=== PATIENT | male | born 1960 | race Caucasian/White ===

== ENCOUNTER 2023-08-16 16:04 | Emergency (ER) | payer BC, OTHER ==
[2023-08-16] MEDS ORDERED: Lidocaine 1% 20 ML MDV INFILT ONE (16:05)
[2023-08-16 16:30] VITALS: BP 168/88; PULSE 71
== END 2023-08-16 17:25 | disposition home or self-care (01) ==
LOC: FB.ED 16:04
DX: S61.012A Laceration without foreign body of left thumb without damage to nail, initial encounter (principal); W26.0XXA Contact with knife, initial encounter; Z79.899 Other long term (current) drug therapy
CPT/HCPCS: 12002; 99282

== ENCOUNTER 2025-08-08 07:09 | Emergency (ER) | payer OTHER ==
[2025-08-08 09:23] VITALS: BP 169/96; PULSE 66
== END 2025-08-08 08:20 | disposition home or self-care (01) ==
LOC: FB.ED 07:09
DX: S61.012A Laceration without foreign body of left thumb without damage to nail, initial encounter (principal); Z79.899 Other long term (current) drug therapy; W27.0XXA Contact with workbench tool, initial encounter
CPT/HCPCS: 12001; 73140-FA; 99282; 99283